=== PATIENT | male | born 1980 | race Caucasian/White ===

== ENCOUNTER 2020-08-15 12:26 | Inpatient (IN) | payer SELFPAY ==
[2020-08-15 14:56] VITALS: BMI 37.0
[2020-08-15] MEDS ORDERED: MENTHOL/PHENOL 1 EACH UD MM PRN (15:44)
[2020-08-15] MEDS ORDERED: MAG HYDROX/AL HYDROX/SIMETH 30 ML UNIT-DOSE CUP PO PRN (15:44)
[2020-08-15] MEDS ORDERED: BISMUTH SUBSALICYLATE 262 MG/15 ML BTL PO PRN (15:44)
[2020-08-15] MEDS ORDERED: ACETAMINOPHEN 325 MG TABLET (FP) PO PRN ×2 (15:44)
[2020-08-15] MEDS ORDERED: LORazepam 1 MG TABLET PO PRN (15:44)
[2020-08-15] MEDS ORDERED: ONDANSETRON *ODT* 4 MG TABLET SL PRN (15:44)
[2020-08-15] MEDS ORDERED: NICOTINE POLACRILEX 2 MG GUM BUC PRN (15:44)
[2020-08-15] MEDS ORDERED: MAGNESIUM HYDROX 2400MG/30ML ORAL SUSPENSION 30 ML CUP PO PRN (15:44)
[2020-08-15] MEDS ORDERED: MAGNESIUM CITRATE 300 ML BOTTLE PO PRN (15:44)
[2020-08-15] MEDS: METHOCARBAMOL 500 MG TABLET PO PRN (17:52)
[2020-08-15] MEDS: LORazepam 2 MG TABLET PO SCH ×2 (17:52→22:49)
[2020-08-15] MEDS: PRENATAL VITAMINS W/ FOLIC ACID TABLET (FP) PO SCH (17:52)
[2020-08-15] MEDS: hydrOXYzine PAMOATE 25 MG CAPSULE (FP) PO SCH ×2 (17:52→22:48)
[2020-08-15] MEDS: THIAMINE HCL 100 MG TABLET (FP) PO SCH (22:48)
[2020-08-15] MEDS: MELATONIN 5 MG TABLETS PO SCH (22:48)
[2020-08-16] MEDS: LORazepam 2 MG TABLET PO SCH ×4 (05:33→22:18)
[2020-08-16] MEDS: hydrOXYzine PAMOATE 25 MG CAPSULE (FP) PO SCH ×5 (05:33→22:17)
[2020-08-16 10:49] LABS: HEMATOCRIT 33.5 % (35.4-49); MCH 23.7 pg (25.7-33.7); MCHC 29.8 g/dl (32.0-35.9); MEAN CELL VOLUME 79.6 fl (80-96); MEAN PLT VOLUME 7.7 fl (7.5-11.1); PLATELET COUNT 373 10^3/uL (134-434); RBC 4.21 M/mm3 (4.00-5.60); RDW 20.3 % (11.9-15.9); WHITE BLOOD COUNT 8.4 K/mm3 (4.0-10.0)
[2020-08-16 10:55] LABS: CALCIUM 9.1 mg/dL (8.5-10.1)
[2020-08-16] MEDS: PRENATAL VITAMINS W/ FOLIC ACID TABLET (FP) PO SCH (10:55)
[2020-08-16] MEDS: METHOCARBAMOL 500 MG TABLET PO PRN (10:55)
[2020-08-16 10:56] LABS: ALBUMIN 4.5 g/dl (3.4-5.0); BLOOD UREA NITROGEN 9.8 mg/dL (7-18)
[2020-08-16 10:59] LABS: CREATININE 0.9 mg/dL (0.55-1.3)
[2020-08-16 11:01] LABS: BILIRUBIN,TOTAL 1.4 mg/dL (0.2-1); TOT PROT 8.5 g/dl (6.4-8.2)
[2020-08-16] MEDS: LISINOPRIL 10 MG TABLET PO SCH (14:14)
[2020-08-16] MEDS: THIAMINE HCL 100 MG TABLET (FP) PO SCH (22:17)
[2020-08-16] MEDS: MELATONIN 5 MG TABLETS PO SCH (22:18)
[2020-08-17] MEDS: LORazepam 1 MG TABLET PO SCH ×4 (06:29→22:09)
[2020-08-17] MEDS: hydrOXYzine PAMOATE 25 MG CAPSULE (FP) PO SCH ×5 (06:30→22:09)
[2020-08-17] MEDS: LISINOPRIL 10 MG TABLET PO SCH (10:35)
[2020-08-17] MEDS: PRENATAL VITAMINS W/ FOLIC ACID TABLET (FP) PO SCH (10:35)
[2020-08-17] MEDS: IBUPROFEN 400 MG TABLET (FP) PO PRN ×2 (10:36→18:43)
[2020-08-17] MEDS: METHOCARBAMOL 500 MG TABLET PO PRN (22:09)
[2020-08-17] MEDS: THIAMINE HCL 100 MG TABLET (FP) PO SCH (22:09)
[2020-08-17] MEDS: MELATONIN 5 MG TABLETS PO SCH (22:10)
[2020-08-18] MEDS ORDERED: LORazepam 0.5 MG TABLET PO PRN
[2020-08-18] MEDS: LORazepam 0.5 MG TABLET PO SCH ×3 (06:49→17:56)
[2020-08-18] MEDS: hydrOXYzine PAMOATE 25 MG CAPSULE (FP) PO SCH ×4 (06:49→17:57)
[2020-08-18] MEDS: PRENATAL VITAMINS W/ FOLIC ACID TABLET (FP) PO SCH (10:32)
[2020-08-18] MEDS: LISINOPRIL 10 MG TABLET PO SCH (10:33)
[2020-08-18 14:18] VITALS: BP 146/96; PULSE 108; TEMP 97.1
[2020-08-19] MEDS ORDERED: LORazepam 0.5 MG TABLET PO ONE (05:00)
== END 2020-08-18 18:12 | disposition home or self-care (01) | DRG 774 ==
LOC: YASAS 12:26 → Y3N 15:37
PROVIDERS: ADMIT Allergy & Immunology; ATTEND Allergy & Immunology
PROC: HZ2ZZZZ Detoxification Services for Substance Abuse Treatment (ICD-10-PCS; principal; 2020-08-15)
DX: F10.230 Alcohol dependence with withdrawal, uncomplicated (principal); F10.220 Alcohol dependence with intoxication, uncomplicated; F14.10 Cocaine abuse, uncomplicated; F12.20 Cannabis dependence, uncomplicated; F19.280 Other psychoactive substance dependence with psychoactive substance-induced anxiety disorder; F19.282 Other psychoactive substance dependence with psychoactive substance-induced sleep disorder; I10 Essential (primary) hypertension; R94.5 Abnormal results of liver function studies; E66.9 Obesity, unspecified; Z68.37 Body mass index [BMI] 37.0-37.9, adult; Z87.09 Personal history of other diseases of the respiratory system; Z87.891 Personal history of nicotine dependence
CPT/HCPCS: 36415; 80053; 85027; 86780; 93005; 93010; C9803; U0003; U0005

== ENCOUNTER 2022-04-15 15:24 | Inpatient (IN) | payer SELFPAY ==
[2022-04-15 16:39] VITALS: BMI 33.8
[2022-04-15] MEDS ORDERED: METOPROLOL TARTRATE 25 MG TABLET (FP) PO ONE (17:11)
[2022-04-15] MEDS ORDERED: P-EPHED 60MG/TRIPROLIDI 2.5MG TABLET PO PRN (17:13)
[2022-04-15] MEDS ORDERED: BISMUTH SUBSALICYLATE 524 MG/30 ML PO PRN (17:13)
[2022-04-15] MEDS ORDERED: IBUPROFEN 600 MG TABLET (FP) PO PRN (17:13)
[2022-04-15] MEDS ORDERED: guaiFENesin 200 MG/10 ML 10 ML UNIT-DOSE CUPS PO PRN (17:13)
[2022-04-15] MEDS ORDERED: LOPERAMIDE HCL 2 MG CAPSULE PO PRN (17:13)
[2022-04-15] MEDS ORDERED: ONDANSETRON *ODT* 4 MG TABLET SL PRN (17:13)
[2022-04-15] MEDS ORDERED: MAG HYDROX/AL HYDROX/SIMETH 30 ML UNIT-DOSE CUP PO PRN (17:13)
[2022-04-15] MEDS ORDERED: POLYETHYLENE GLYCOL (HEALTHYLAX) 3350 17 GM PACKET PO PRN (17:13)
[2022-04-15] MEDS ORDERED: MAGNESIUM HYDROX 2400MG/30ML ORAL SUSPENSION 30 ML CUP PO PRN (17:13)
[2022-04-15] MEDS ORDERED: DICYCLOMINE HCL 10 MG CAPSULE PO PRN (17:13)
[2022-04-15] MEDS ORDERED: BENZOCAINE/MENTHOL (CHLORASEPTIC ) LOZENGE MM PRN (17:13)
[2022-04-15] MEDS ORDERED: ACETAMINOPHEN 325 MG TABLET (FP) PO PRN ×2 (17:13)
[2022-04-15] MEDS ORDERED: IBUPROFEN 400 MG TABLET (FP) PO PRN (17:13)
[2022-04-15] MEDS ORDERED: METOPROLOL TARTRATE 25 MG TABLET (FP) ONE (17:20)
[2022-04-15] MEDS: chlordiazePOXIDE HCL 25 MG CAPSULE PO SCH ×2 (17:29→22:35)
[2022-04-15] MEDS: METHOCARBAMOL 500 MG TABLET PO PRN (22:35)
[2022-04-15] MEDS: THIAMINE HCL 100 MG TABLET (FP) PO SCH (22:35)
[2022-04-15] MEDS: MELATONIN 5 MG TABLETS PO PRN (22:35)
[2022-04-16] MEDS: chlordiazePOXIDE HCL 25 MG CAPSULE PO SCH ×4 (05:50→22:44)
[2022-04-16] MEDS ORDERED: amLODIPine BESYLATE 5 MG TABLET (FP) PO SCH (10:00)
[2022-04-16] MEDS: FAMOTIDINE 20 MG TABLET PO SCH ×2 (10:27→22:44)
[2022-04-16] MEDS: PRENATAL VITAMINS W/ FOLIC ACID TABLET (FP) PO SCH (10:27)
[2022-04-16] MEDS: chlordiazePOXIDE HCL 25 MG CAPSULE PO PRN ×2 (14:00→20:21)
[2022-04-16 15:24] LABS: HEMATOCRIT 39.9 % (35.4-49); HEMOGLOBIN 13.5 GM/dL (11.7-16.9); MCH 32.4 pg (25.7-33.7); MCHC 33.8 g/dl (32.0-35.9); MEAN CELL VOLUME 95.9 fl (80-96); PLATELET COUNT 105 10^3/uL (134-434); RBC 4.16 M/mm3 (4.00-5.60); RDW 13.2 % (11.9-15.9); WHITE BLOOD COUNT 4.4 K/mm3 (4.0-10.0)
[2022-04-16 16:00] LABS: ALBUMIN 4.3 g/dl (3.4-5.0)
[2022-04-16 16:01] LABS: BLOOD UREA NITROGEN 12.8 mg/dL (7-18)
[2022-04-16 16:04] LABS: CREATININE 0.9 mg/dL (0.55-1.3)
[2022-04-16 16:06] LABS: BILIRUBIN,TOTAL 1.1 mg/dL (0.2-1); TOT PROT 7.6 g/dl (6.4-8.2)
[2022-04-16 20:38] VITALS: RESP 18
[2022-04-16] MEDS ORDERED: METOPROLOL TARTRATE 25 MG TABLET (FP) PO ONE (21:57)
[2022-04-16] MEDS: THIAMINE HCL 100 MG TABLET (FP) PO SCH (22:43)
[2022-04-16] MEDS: MELATONIN 5 MG TABLETS PO PRN (22:44)
[2022-04-16] MEDS: METHOCARBAMOL 500 MG TABLET PO PRN (22:47)
[2022-04-17] MEDS ORDERED: chlordiazePOXIDE HCL 25 MG CAPSULE PO SCH (05:00)
[2022-04-17] MEDS ORDERED: amLODIPine BESYLATE 5 MG TABLET (FP) PO SCH (09:24)
[2022-04-17] MEDS ORDERED: LORazepam 1 MG TABLET PO PRN (09:28)
[2022-04-17 10:00] VITALS: BP 133/101; PULSE 63; TEMP 98.1
[2022-04-17] MEDS ORDERED: amLODIPine BESYLATE 10 MG TABLET (FP) PO SCH (10:00)
[2022-04-17] MEDS: PRENATAL VITAMINS W/ FOLIC ACID TABLET (FP) PO SCH (10:07)
[2022-04-17] MEDS: FAMOTIDINE 20 MG TABLET PO SCH (10:07)
[2022-04-17] MEDS ORDERED: LORazepam 2 MG TABLET PO SCH (11:00)
[2022-04-18] MEDS ORDERED: chlordiazePOXIDE HCL 10 MG CAPSULE PO PRN
[2022-04-18] MEDS ORDERED: LORazepam 1 MG TABLET PO SCH (05:00)
[2022-04-18] MEDS ORDERED: chlordiazePOXIDE HCL 10 MG CAPSULE PO SCH (05:00)
[2022-04-19] MEDS ORDERED: LORazepam 0.5 MG TABLET PO PRN
[2022-04-19] MEDS ORDERED: chlordiazePOXIDE HCL 10 MG CAPSULE PO SCH (05:00)
[2022-04-19] MEDS ORDERED: LORazepam 0.5 MG TABLET PO SCH (05:00)
[2022-04-20] MEDS ORDERED: LORazepam 0.5 MG TABLET PO ONE (05:00)
[2022-04-20] MEDS ORDERED: chlordiazePOXIDE HCL 10 MG CAPSULE PO ONE (05:00)
== END 2022-04-17 10:31 | disposition left against medical advice (07) | DRG 770 ==
LOC: YASAS 15:24 → Y6N 18:00
PROVIDERS: ADMIT Allergy & Immunology; ATTEND Surgery
PROC: HZ2ZZZZ Detoxification Services for Substance Abuse Treatment (ICD-10-PCS; principal; 2022-04-15)
DX: F12.20 Cannabis dependence, uncomplicated (principal); I10 Essential (primary) hypertension; K21.9 Gastro-esophageal reflux disease without esophagitis; M25.512 Pain in left shoulder
CPT/HCPCS: 36415; 80053; 85027; 86780; 87811; C9803-CS; U0003; U0005